=== PATIENT | female | born 1960 | race African-American/Black ===

== ENCOUNTER 2020-11-16 20:10 | Observation (INO) | payer OTHER ==
[2020-11-16 20:41] VITALS: BMI 30.4
[2020-11-16] MEDS ORDERED: SODIUM CHLORIDE 1,000 ML IV SCH (20:45)
[2020-11-16 21:18] LABS: BASO % 0.9 % (0-2.0); EOS % 0.1 % (0-4.5); HEMOGLOBIN 13.2 GM/dL (10.7-15.3); LYMPH % 17.7 % (8-40); MCH 31.3 pg (25.7-33.7); MCHC 33.9 g/dl (32.0-36.0); MEAN CELL VOLUME 92.4 fl (80-96); MEAN PLT VOLUME 8.4 fl (7.5-11.1); NEUT % 76.3 % (42.8-82.8); PLATELET COUNT 203 10^3/uL (134-434); RBC 4.22 M/mm3 (3.60-5.2); RDW 14.8 % (11.6-15.6); WHITE BLOOD COUNT 8.2 K/mm3 (4.0-10.0)
[2020-11-16 21:28] LABS: INR 0.86 (0.83-1.09); PROTHROMBIN TIME (PATIENT) 10.5 SEC (9.7-13.0)
[2020-11-16 21:30] LABS: ACTIVATED PTT 27.9 SECONDS (25.2-36.5)
[2020-11-16 21:44] LABS: CHLORIDE 103 mmol/L (98-107); SODIUM 136 mmol/L (136-145)
[2020-11-16 21:46] LABS: CALCIUM 9.7 mg/dL (8.5-10.1)
[2020-11-16 21:47] LABS: ALBUMIN 3.9 g/dl (3.4-5.0); ANION GAP 13 MMOL/L (8-16); BLOOD UREA NITROGEN 16.5 mg/dL (7-18); CO2 21 mmol/L (21-32); GLUCOSE,RANDOM 96 mg/dL (74-106)
[2020-11-16 21:50] LABS: CREATININE 1.1 mg/dL (0.55-1.3); SGOT/AST 35 U/L (15-37); SGPT/ALT 23 U/L (13-61)
[2020-11-16 21:51] LABS: BILIRUBIN,TOTAL 0.4 mg/dL (0.2-1); CHOLESTEROL 344 mg/dL (50-200)
[2020-11-16 21:52] LABS: TRIGLYCERIDES 83 mg/dL (0-150)
[2020-11-16 21:53] LABS: ALK PHOS 92 U/L (45-117); LDL CHOLESTEROL (ONLY SJRH) 76 mg/dL (5-100)
[2020-11-16 21:59] LABS: URINE COLOR YELLOW
[2020-11-16 22:00] LABS: PH,URINE 7.5 (5.0-8.0); URINE APPEARANCE CLEAR; URINE BILIRUBIN NEGATIVE (NEGATIVE); URINE GLUCOSE (UA) NEGATIVE (NEGATIVE); URINE KETONE NEGATIVE (NEGATIVE); URINE NITRITE NEGATIVE (NEGATIVE); URINE PROTEIN NEGATIVE (NEGATIVE)
[2020-11-16 22:01] LABS: EPI CELLS 2.5 /uL (0-25.1); URINE BACTERIA 34.3 /uL (0-1359); URINE LEUK ESTERASE NEGATIVE (NEGATIVE); URINE RBC 1.2 /uL (0-23.9)
[2020-11-16 22:06] LABS: HDL CHOLESTEROL 213 mg/dL (40-60)
[2020-11-16] MEDS ORDERED: ACETAMINOPHEN 1000 MG/100 ML VIAL (NON FORMULARY) IVPB ONE (22:41)
[2020-11-16] MEDS ORDERED: ACETAMINOPHEN INJECTION 100 ML IVPB ONE (22:49)
[2020-11-16 23:58] LABS: LACTIC ACID 3.4 mmol/L (0.4-2.0)
[2020-11-17] MEDS ORDERED: SODIUM CHLORIDE 0.9% 500 ML INFUS.BAG IV ONE (00:56)
[2020-11-17 02:51] LABS: LACTIC ACID 2.4 mmol/L (0.4-2.0)
[2020-11-17] MEDS ORDERED: ACETAMINOPHEN 325 MG TABLET (FP) PO PRN (03:24)
[2020-11-17] MEDS ORDERED: ALBUTEROL SO4 HFA INHALER IH PRN (03:29)
[2020-11-17] MEDS ORDERED: guaiFENesin/D-METHORPHAN HB 10 ML UNIT-DOSE CUPS PO PRN (03:29)
[2020-11-17] MEDS ORDERED: ASPIRIN 81 MG CHEWABLE TABLETS PO ONE (04:08)
[2020-11-17] MEDS: SODIUM CHLORIDE 1,000 ML IV SCH ×2 (04:16→18:56)
[2020-11-17] MEDS ORDERED: HYDROXYCHLOROQUINE SO4 200 MG TABLET (FP) PO ONE (09:50)
[2020-11-17] MEDS ORDERED: amLODIPine BESYLATE 5 MG TABLET (FP) ONE (09:50)
[2020-11-17] MEDS ORDERED: predniSONE 10 MG TABLET (UD) ONE (09:50)
[2020-11-17] MEDS ORDERED: PT OWN MED DRAWER 7, Y5N ONE (09:51)
[2020-11-17] MEDS ORDERED: ENOXAPARIN NA (PORCINE) 40 MG/0.4 ML DISP.SYRIN SQ ONE (09:51)
[2020-11-17 09:53] LABS: HEMATOCRIT 37.7 % (32.4-45.2); HEMOGLOBIN 12.6 GM/dL (10.7-15.3); MCH 31.6 pg (25.7-33.7); MCHC 33.5 g/dl (32.0-36.0); MEAN CELL VOLUME 94.2 fl (80-96); MEAN PLT VOLUME 7.8 fl (7.5-11.1); PLATELET COUNT 176 10^3/uL (134-434); RDW 14.8 % (11.6-15.6); WHITE BLOOD COUNT 6.4 K/mm3 (4.0-10.0)
[2020-11-17] MEDS: HYDROXYCHLOROQUINE SO4 200 MG TABLET (FP) PO SCH (10:03)
[2020-11-17] MEDS: ENOXAPARIN NA (PORCINE) 40 MG/0.4 ML DISP.SYRIN SQ SCH (10:03)
[2020-11-17] MEDS: amLODIPine BESYLATE 5 MG TABLET (FP) PO SCH (10:03)
[2020-11-17] MEDS: predniSONE 10 MG TABLET (UD) PO SCH (10:03)
[2020-11-17 10:19] LABS: ALBUMIN 3.6 g/dl (3.4-5.0); CALCIUM 9.1 mg/dL (8.5-10.1); MAGNESIUM 2.2 mg/dL (1.8-2.4)
[2020-11-17 10:20] LABS: BLOOD UREA NITROGEN 10.9 mg/dL (7-18)
[2020-11-17 10:22] LABS: CREATININE 0.9 mg/dL (0.55-1.3); PHOSPHOROUS 3.5 mg/dL (2.5-4.9)
[2020-11-17 10:24] LABS: BILIRUBIN,TOTAL 0.5 mg/dL (0.2-1); TOT PROT 8.1 g/dl (6.4-8.2)
[2020-11-17 10:25] LABS: LACTIC ACID 2.1 mmol/L (0.4-2.0)
[2020-11-17] MEDS: CHLORTHALIDONE 25 MG TABLET PO SCH (11:30)
[2020-11-17] MEDS ORDERED: ALPRAZolam 1 MG TABLET PO PRN (14:02)
[2020-11-17] MEDS ORDERED: KCL 10 MEQ IVPB 10 MEQ/100 ML INFUS.BAG IVPB ONE (15:24)
[2020-11-17] MEDS ORDERED: ALPRAZolam 1 MG TABLET ONE (15:24)
[2020-11-17] MEDS: KCL 10 MEQ IVPB 10 MEQ/100 ML INFUS.BAG IVPB SCH ×3 (15:25→20:48)
[2020-11-17] MEDS: TOPIRAMATE 25 MG TABLET PO SCH (21:48)
[2020-11-18 07:50] LABS: CALCIUM 8.8 mg/dL (8.5-10.1)
[2020-11-18 07:51] LABS: BLOOD UREA NITROGEN 13.5 mg/dL (7-18)
[2020-11-18 07:54] LABS: CREATININE 0.9 mg/dL (0.55-1.3)
[2020-11-18] MEDS ORDERED: PT OWN MED DRAWER 7, Y5N ONE (09:53)
[2020-11-18] MEDS ORDERED: PANTOPRAZOLE 40 MG TABLET PO SCH (10:00)
[2020-11-18] MEDS: amLODIPine BESYLATE 5 MG TABLET (FP) PO SCH (10:09)
[2020-11-18] MEDS: TOPIRAMATE 25 MG TABLET PO SCH (10:09)
[2020-11-18] MEDS: CHLORTHALIDONE 25 MG TABLET PO SCH (10:09)
[2020-11-18] MEDS: predniSONE 10 MG TABLET (UD) PO SCH (10:09)
[2020-11-18] MEDS: ENOXAPARIN NA (PORCINE) 40 MG/0.4 ML DISP.SYRIN SQ SCH (10:09)
[2020-11-18] MEDS: HYDROXYCHLOROQUINE SO4 200 MG TABLET (FP) PO SCH (11:25)
[2020-11-18 13:55] VITALS: BP 117/67; PULSE 90; TEMP 98
== END 2020-11-18 16:13 | disposition home or self-care (01) ==
LOC: JER 20:10 → INTOOBSV 11-17 01:15 → JERBED 11-17 01:15 → UNDOADMOB 11-17 01:15 → JERBED 11-17 18:13 → J4W 11-17 18:13 → JERBED 11-18 09:53 → J4W 11-18 09:53
PROVIDERS: ADMIT Hospitalist; ATTEND Internal Medicine
PROC: 3E033NZ Introduction of Analgesics, Hypnotics, Sedatives into Peripheral Vein, Percutaneous Approach (ICD-10-PCS; principal; 2020-11-18)
PROC: 3E023GC Introduction of Other Therapeutic Substance into Muscle, Percutaneous Approach (ICD-10-PCS; 2020-11-18)
PROC: 3E033GC Introduction of Other Therapeutic Substance into Peripheral Vein, Percutaneous Approach (ICD-10-PCS; 2020-11-18)
PROC: 3E0337Z Introduction of Electrolytic and Water Balance Substance into Peripheral Vein, Percutaneous Approach (ICD-10-PCS; 2020-11-18)
DX: D86.9 Sarcoidosis, unspecified (principal); J45.909 Unspecified asthma, uncomplicated; E87.6 Hypokalemia; E87.2 Acidosis; I10 Essential (primary) hypertension; G43.909 Migraine, unspecified, not intractable, without status migrainosus; E66.8 Other obesity; Z68.30 Body mass index [BMI] 30.0-30.9, adult
CPT/HCPCS: 36415; 70450-TC; 70553-TC; 71275-TC; 74174-TC; 80048; 80053; 80061; 81003; 82550; 82553; 82962; 83036; 83605; 83721; 83735; 84100; 84443; 84484; 85025; 85027; 85610; 85730; 86850; 86900; 86901; 93005; 93010; 93880-TC; 94010; 96361; 96365; 96372; 96375; 97116-GP; 97161-GP; 99285-25; A9579; C1887; C9803; G0378; J0131; Q9967; U0003; U0005